=== PATIENT | male | born 1985 | race Caucasian/White ===

== ENCOUNTER 2019-03-22 16:25 | Emergency (ER) | payer SELFPAY ==
[2019-03-22] MEDS ORDERED: Sodium Chloride 0.9% 10 ML Syringe FLUSH PRN (16:29)
[2019-03-22] MEDS ORDERED: Sodium Chloride 0.9% 2.5 ML Syringe FLUSH PRN (16:29)
--- NOTE | 2019-03-22 16:34 | EDM.PDOC ---
ED HPI GENERAL MEDICAL PROBLEM - General Chief Complaint: Lower Extremity Injury/Pain Stated Complaint: BLOOD CLOT IN RT KNEE Time Seen by Provider: 03/22/19 16:32 Source of Information: Reports: Patient History Limitations: Reports: No Limitations - History of Present Illness INITIAL COMMENTS - FREE TEXT/NARRATIVE: HISTORY AND PHYSICAL: History of present illness: Patient is a 33-year-old male who presents to the emergency room today with complaints of pain to the right posterior thigh. 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 He states he is concerned he has a blood clot to the affected area. Symptoms started this morning and have progressively gotten worse. The area is warm to touch and tender with palpation. He denies any injury, trauma or falls. Denies any numbness or tingling of the affected extremity. Review of systems: As per history of present illness and below otherwise all systems reviewed and negative. Past medical history: As per history of present illness and as reviewed below otherwise noncontributory. Surgical history: As per history of present illness and as reviewed below otherwise noncontributory. Social history: See social history for further information Family history: As per history of present illness and as reviewed below otherwise noncontributory. Physical exam: General: Well-developed and well-nourished 33-year-old male. Alert and oriented. Nontoxic appearing and in no acute distress. HEENT: Atraumatic, normocephalic, pupils equal and reactive bilaterally, negative for conjunctival pallor or scleral icterus, mucous membranes moist, TMs normal bilaterally, throat clear, neck supple, nontender, trachea midline. No drooling or trismus noted. No meningeal signs. No hot potato voice noted. Lungs: Clear to auscultation, breath sounds equal bilaterally, chest nontender. Heart: S1S2, regular rate and rhythm without overt murmur Abdomen: Soft, nondistended, nontender. Negative for masses. Skin: Localized area of erythema and tenderness with palpation to the medial distal posterior thigh. Firm to touch without fluctuance. Does not appear cellulitic. Otherwise skin is intact, warm, dry. No lesions or rashes noted. Extremities: Atraumatic, moves all extremities per self without difficulty or deficits, negative for cords or calf pain. See SKIN for details. Strong pedal and pretibial pulses bilaterally. Neurovascular unremarkable. Neuro: Awake, alert, oriented. Cranial nerves II through XII unremarkable. Cerebellum unremarkable. Motor and sensory unremarkable throughout. Exam nonfocal. Notes: Ultrasound shows DVT in the right femoral and popliteal veins. Patient's PT/INR is subtherapeutic (0.92) for being on Coumadin therapy. Otherwise lab is unremarkable. Patient reports he has not had his PT/INR assessed or been seen by his PCP in over a year and a half. 1745: [place] hematology oncologist, Dr Gonzales, was consulted on this patient. She is aware of the patient history and presentation. She does state this patient is a candidate for taking Eliquis or Xarelto instead of the Coumadin, as patient is noncompliant. Discussed this with the patient medication options. He would like to start the Eliquis, we discussed stopping the Coumadin/warfarin. Signs and symptoms that would prompt him to return to the emergency room were reviewed and discussed. Supportive care measures were reviewed and discussed. Voices understanding and is agreeable to plan of care. Denies any further questions or concerns at this time. Diagnostics: CBC, CMP, PT/INR, lower extremity ultrasound Therapeutics: Saline lock Prescription: Eliquis Impression: Subtherapeutic anticoagulation therapy History of factor V Leiden DVT Plan: 1. Stop Warfarin medication today 2. Eliquis 10mg twice daily x 7 days, then 5mg twice daily (maintenance dose) 3. Follow-up with your primary care provider for re-evaluation and further management as we discussed. You'll need to have your primary care refill and further continue this medication that has been prescribed. 4. Return to the ED as needed and as discussed. Definitive disposition and diagnosis as appropriate pending reevaluation and review of above. right thigh Pain Score (Numeric/FACES): 7 - Related Data Allergies Allergy/AdvReac Type Severity Reaction Status Date / Time No Known Allergies Allergy Verified 03/22/19 16:31 Home Meds: Home Meds Warfarin [Coumadin] 5 mg PO DAILY 03/22/19 [History] Review of Systems - Review of Systems Review Of Systems: ROS reveals no pertinent complaints other than HPI. ED EXAM, GENERAL - Physical Exam Exam: See Below (See dictation) Course - Vital Signs Last Recorded V/S: Last Vital Signs Temp 96.9 F 03/22/19 16:32 Pulse 90 03/22/19 18:32 Resp 18 03/22/19 17:52 BP 147/78 H 03/22/19 18:32 Pulse Ox 98 03/22/19 18:32 - Orders/Labs/Meds Orders: Active Orders 24 hr Category Date Time Status Saline Lock Insert [OM.PC] Stat Oth 03/22/19 16:29 Ordered Labs: Laboratory Tests 03/22/19 03/22/19 03/22/19 Range/Units 16:40 16:40 16:40 WBC 9.25 (4.0-11.0) K/uL RBC 4.78 (4.50-5.90) M/uL Hgb 15.4 (13.0-17.0) g/dL Hct 43.3 (38.0-50.0) % MCV 90.6 (80.0-98.0) fL MCH 32.2 H (27.0-32.0) pg MCHC 35.6 (31.0-37.0) g/dL RDW Std Deviation 41.4 (28.0-62.0) fl RDW Coeff of Jason 13 (11.0-15.0) % Plt Count 307 (150-400) K/uL MPV 9.80 (7.40-12.00) fL Neut % (Auto) 61.8 (48.0-80.0) % Lymph % (Auto) 25.2 (16.0-40.0) % [place] % (Auto) 9.4 (0.0-15.0) % Eos % (Auto) 3.2 (0.0-7.0) % Baso % (Auto) 0.4 (0.0-1.5) % Neut # (Auto) 5.7 (1.4-5.7) K/uL Lymph # (Auto) 2.3 (0.6-2.4) K/uL [place] # (Auto) 0.9 H (0.0-0.8) K/uL Eos # (Auto) 0.3 (0.0-0.7) K/uL Baso # (Auto) 0.0 (0.0-0.1) K/uL Nucleated RBC % 0.0 /100WBC Nucleated RBCs # 0 K/uL INR 0.92 Sodium 140 (136-148) mmol/L Potassium 3.7 (3.5-5.1) mmol/L Chloride 104 (98-107) mmol/L Carbon Dioxide 23.6 (21.0-32.0) mmol/L BUN 17 (7.0-18.0) mg/dL Creatinine 1.1 (0.8-1.3) mg/dL Est Cr Clr Drug Dosing 112.03 mL/min Estimated GFR (MDRD) > 60.0 ml/min Glucose 154 H (74-106) mg/dL Calcium 8.7 (8.5-10.1) mg/dL Total Bilirubin 0.5 (0.2-1.0) mg/dL AST 26 (15-37) IU/L ALT 81 H (14-63) IU/L Alkaline Phosphatase 88 (46-116) U/L Total Protein 7.0 (6.4-8.2) g/dL Albumin 3.6 (3.4-5.0) g/dL Globulin 3.4 (2.6-4.0) g/dL Albumin/Globulin Ratio 1.1 (0.9-1.6) Meds: Medications Discontinued Medications Generic Name Dose Route Start Last Admin Trade Name Freq PRN Reason Stop Dose Admin Sodium Chloride 10 ml 03/22/19 16:29 03/22/19 17:48 Saline Flush FLUSH 10 ml ASDIRECTED PRN Administration Keep Vein Open Sodium Chloride 2.5 ml 03/22/19 16:29 03/22/19 17:48 Saline Flush FLUSH 2.5 ml ASDIRECTED PRN Administration Keep Vein Open Departure - Departure Time of Disposition: 18:05 Disposition: Home, Self-Care 01 Clinical Impression: History of factor V Leiden mutation, Subtherapeutic anticoagulation DVT (deep venous thrombosis) Qualifiers: DVT location: lower extremity Affected thrombotic vein of extremity: femoral Chronicity: acute Laterality: right Qualified Code(s): I82.411 - Acute embolism and thrombosis of right femoral vein - Discharge Information Instructions: Deep Vein Thrombosis Referrals: PCP,None [Primary Care Provider] - Forms: ED Department Discharge Additional Instructions: The following information is given to patients seen in the emergency department who are being discharged to home. This information is to outline your options for follow-up care. We provide all patients seen in our emergency department with a follow-up referral. The need for follow-up, as well as the timing and circumstances, are variable depending upon the specifics of your emergency department visit. If you don't have a primary care physician on staff, we will provide you with a referral. We always advise you to contact your personal physician following an emergency department visit to inform them of the circumstance of the visit and for follow-up with them and/or the need for any referrals to a consulting specialist. The emergency department will also refer you to a specialist when appropriate. This referral assures that you have the opportunity for follow-up care with a specialist. All of these measure are taken in an effort to provide you with optimal care, which includes your follow-up. Under all circumstances we always encourage you to contact your private physician who remains a resource for coordinating your care. When calling for follow-up care, please make the office aware that this follow-up is from your recent emergency room visit. If for any reason you are refused follow-up, please contact the [facility] Emergency Department at and asked to speak to the emergency department charge nurse. [facility] [address] [place] [id number] [place] [address] 1. Stop Warfarin medication today 2. Eliquis 10mg twice daily x 7 days, then 5mg twice daily (maintenance dose) 3. Follow-up with your primary care provider for re-evaluation and further management as we discussed. You'll need to have your primary care refill and further continue this medication that has been prescribed. 4. Return to the ED as needed and as discussed. - My Orders Last 24 Hours: My Active Orders 03/22/19 16:29 Saline Lock Insert [OM.PC] Stat - Assessment/Plan Last 24 Hours: My Active Orders 03/22/19 16:29 Saline Lock Insert [OM.PC] Stat
[2019-03-22 17:14] LABS: CHLORIDE,CL 104 mmol/L (98-107); SODIUM,NA 140 mmol/L (136-148)
--- NOTE | 2019-03-22 17:28 | US ---
HISTORY: Right leg redness and swelling. History of blood clots. Currently on anticoagulation. TECHNIQUE: Ultrasound of the right lower extremity deep veins using gregory-scale, color Doppler, and spectral Doppler. COMPARISON: None. FINDINGS: Right: Common femoral vein is patent and compressible. Deep femoral vein is patent and compressible. Hypoechoic thrombus in the mid and distal femoral vein and popliteal vein. Involved segments are noncompressible. Posterior tibial vein is patent and compressible. Greater saphenous vein is patent and compressible at the junction with the femoral vein. IMPRESSION: DVT in the right femoral and popliteal veins. --- Called to Yas Fountain NP on 03/22/19 at 1725 hours. Dictated by Boogie Murphy MD @ Mar 22 2019 5:21PM Signed by Dr. Boogie Murphy @ Mar 22 2019 5:26PM
== END 2019-03-22 18:33 | disposition home or self-care (01) ==
LOC: MW.ED 16:25
DX: I82.411 Acute embolism and thrombosis of right femoral vein (principal); I82.431 Acute embolism and thrombosis of right popliteal vein; R79.1 Abnormal coagulation profile
CPT/HCPCS: 80053; 85025; 85610; 93971-26-RT; 93971-RT; 99284-25

== ENCOUNTER 2020-05-05 13:21 | Emergency (ER) | payer SELFPAY ==
--- NOTE | 2020-05-05 13:40 | EDM.PDOC ---
ED HPI GENERAL MEDICAL PROBLEM - General Chief Complaint: Lower Extremity Injury/Pain Stated Complaint: SCAR OPENED UP ON RT ANKLE Time Seen by Provider: 05/05/20 13:22 Source of Information: Reports: Patient History Limitations: Reports: No Limitations - History of Present Illness INITIAL COMMENTS - FREE TEXT/NARRATIVE: HISTORY AND PHYSICAL: History of present illness: Patient is a 34-year-old male who presents to the emergency room with complaints of an open sore to the right medial ankle. He states several years ago he developed a laceration at the site which closed well on its own. Approximately a week ago he noticed a small open sore/abrasion which he believes is from his boots rubbing on his medial ankle. There is a quarter size area of open skin on the medial malleolus along with some diffuse erythema surrounding the site. He denies any injury, trauma or falls. Patient does have a history of factor V and does take Coumadin for this. He follows up in the clinic routinely to monitor his INRs. He denies any numbness, tingling, saddle paresthesia. He has been ambulating without any difficulty or deficits. Review of systems: As per history of present illness and below otherwise all systems reviewed and negative. Past medical history: As per history of present illness and as reviewed below otherwise noncontributory. Surgical history: As per history of present illness and as reviewed below otherwise noncontributory. Social history: See social history for further information Family history: As per history of present illness and as reviewed below otherwise noncontributory. Physical exam: General: Well-developed and well-nourished 34-year-old male. Alert and oriented. Nontoxic-appearing and in no acute distress. HEENT: Atraumatic, normocephalic, pupils equal and reactive bilaterally, negative for conjunctival pallor or scleral icterus, mucous membranes moist, TMs normal bilaterally, throat clear, neck supple, nontender, trachea midline. No drooling or trismus noted. No meningeal signs. No hot potato voice noted. Lungs: Clear to auscultation, breath sounds equal bilaterally, chest nontender. Heart: S1S2, regular rate and rhythm without overt murmur Abdomen: Soft, nondistended, nontender. Skin: Intact, warm, dry. No lesions or rashes noted. Extremities: Atraumatic, moves all extremities per self without difficulty or deficits, negative for cords or calf pain. Neurovascular unremarkable. Neuro: Awake, alert, oriented. Cranial nerves II through XII unremarkable. Cerebellum unremarkable. Motor and sensory unremarkable throughout. Exam nonfocal. Notes: Baseline lab work is unremarkable. X-ray shows a minimal spur at the attachment of the Achilles tendon, otherwise unremarkable. Will start on outpatient oral antibiotics and we discussed signs and symptoms that would prompt him to return to the emergency room. I did encourage him to follow-up with her primary care provider to have a close eye on the wound. Follow-up, medication and supportive care measures were reviewed and discussed. Voices understanding and is agreeable to plan of care. Denies any further questions or concerns at this time. Diagnostics: CBC, BMP, X-ray Therapeutics: None Prescription: Clindamycin Impression: Infected ankle abrasion with cellulitis Plan: 1. Keep the area clean and dry. Avoid any tight or constricting shoes/socks while its healing. Continue to monitor for signs of improvement. Take your antibiotic as prescribed. If you develop fever/chills, your redness increases, drainage worsens, any new or worsening symptoms return to the ED. 2. Tylenol and/or ibuprofen as needed for pain management. 3. Please follow-up with your primary care provider in the next 1-2 days. Return to the ED as needed and as discussed. Definitive disposition and diagnosis as appropriate pending reevaluation and review of above. Right Ankle Pain Score (Numeric/FACES): 5 - Related Data Allergies Allergy/AdvReac Type Severity Reaction Status Date / Time No Known Allergies Allergy Verified 05/05/20 13:39 Home Meds: Home Meds Warfarin [Coumadin] 7.5 mg PO DAILY 03/22/19 [History] Clindamycin HCl 450 mg PO TID 7 Days #21 capsule 05/05/20 [Rx] Past Medical History Cardiovascular History: Reports: Blood Clots/VTE/DVT Hematologic History: Reports: Bleeding Disorder, Other (See Below) Other Hematologic History: Factor Five Liden - Infectious Disease History Infectious Disease History: Reports: Chicken Pox Social & Family History - Family History Family Medical History: Noncontributory Review of Systems - Review of Systems Review Of Systems: Comprehensive ROS is negative, except as noted in HPI. ED EXAM, GENERAL - Physical Exam Exam: See Below (See dictation) Course - Vital Signs Last Recorded V/S: Last Vital Signs Temp 96.5 F L 05/05/20 13:36 Pulse 81 05/05/20 13:36 Resp 16 05/05/20 13:36 BP 130/78 05/05/20 13:36 Pulse Ox 98 05/05/20 13:36 - Orders/Labs/Meds Orders: Active Orders 24 hr Category Date Time Status CULTURE WOUND [RM] Stat Lab 05/05/20 11:35 Received Labs: Laboratory Tests 05/05/20 05/05/20 Range/Units 13:44 13:44 WBC 8.37 (4.0-11.0) K/uL RBC 4.99 (4.50-5.90) M/uL Hgb 15.6 (13.0-17.0) g/dL Hct 45.3 (38.0-50.0) % MCV 90.8 (80.0-98.0) fL MCH 31.3 (27.0-32.0) pg MCHC 34.4 (31.0-37.0) g/dL RDW Std Deviation 42.5 (28.0-62.0) fl RDW Coeff of Jason 13 (11.0-15.0) % Plt Count 410 H (150-400) K/uL MPV 9.20 (7.40-12.00) fL Neut % (Auto) 56.0 (48.0-80.0) % Lymph % (Auto) 33.3 (16.0-40.0) % [place] % (Auto) 6.5 (0.0-15.0) % Eos % (Auto) 3.6 (0.0-7.0) % Baso % (Auto) 0.6 (0.0-1.5) % Neut # (Auto) 4.7 (1.4-5.7) K/uL Lymph # (Auto) 2.8 H (0.6-2.4) K/uL [place] # (Auto) 0.5 (0.0-0.8) K/uL Eos # (Auto) 0.3 (0.0-0.7) K/uL Baso # (Auto) 0.1 (0.0-0.1) K/uL Nucleated RBC % 0.0 /100WBC Nucleated RBCs # 0 K/uL Sodium 140 (136-148) mmol/L Potassium 3.7 (3.5-5.1) mmol/L Chloride 102 (98-107) mmol/L Carbon Dioxide 28.4 (21.0-32.0) mmol/L BUN 16 (7.0-18.0) mg/dL Creatinine 1.2 (0.8-1.3) mg/dL Est Cr Clr Drug Dosing 101.71 mL/min Estimated GFR (MDRD) > 60.0 ml/min Glucose 167 H (74-106) mg/dL Calcium 9.6 (8.5-10.1) mg/dL Departure - Departure Time of Disposition: 14:33 Disposition: Home, Self-Care 01 Clinical Impression: Cellulitis Qualifiers: Site of cellulitis: extremity Site of cellulitis of extremity: lower extremity Laterality: right Qualified Code(s): L03.115 - Cellulitis of right lower limb Infected abrasion of ankle Qualifiers: Encounter type: initial encounter Laterality: right Qualified Code(s): S90.511A - Abrasion, right ankle, initial encounter - Discharge Information Prescriptions: Clindamycin HCl 450 mg PO TID 7 Days #21 capsule Instructions: Cellulitis, Adult, [id number] Referrals: PCP,None [Primary Care Provider] - Forms: ED Department Discharge Additional Instructions: The following information is given to patients seen in the emergency department who are being discharged to home. This information is to outline your options for follow-up care. We provide all patients seen in our emergency department with a follow-up referral. The need for follow-up, as well as the timing and circumstances, are variable depending upon the specifics of your emergency department visit. If you don't have a primary care physician on staff, we will provide you with a referral. We always advise you to contact your personal physician following an emergency department visit to inform them of the circumstance of the visit and for follow-up with them and/or the need for any referrals to a consulting specialist. The emergency department will also refer you to a specialist when appropriate. This referral assures that you have the opportunity for follow-up care with a specialist. All of these measure are taken in an effort to provide you with optimal care, which includes your follow-up. Under all circumstances we always encourage you to contact your private physician who remains a resource for coordinating your care. When calling for follow-up care, please make the office aware that this follow-up is from your recent emergency room visit. If for any reason you are refused follow-up, please contact the [facility] Emergency Department at and asked to speak to the emergency department charge nurse. [facility] [address] [place] [address] [facility] [address] [place] [address] Thank you for choosing the [facility] emergency department in [place] for your medical needs today. It was a pleasure caring for you. You were seen in the emergency department for an open sore with cellulitis. 1. Keep the area clean and dry. Avoid any tight or constricting shoes/socks while its healing. Continue to monitor for signs of improvement. Take your antibiotic as prescribed. If you develop fever/chills, your redness increases, drainage worsens, any new or worsening symptoms return to the ED. 2. Tylenol and/or ibuprofen as needed for pain management. 3. Please follow-up with your primary care provider in the next 1-2 days. Return to the ED as needed and as discussed. Sepsis Event Note (ED) - Evaluation Sepsis Screening Result: No Definite Risk - Focused Exam Vital Signs: Vital Signs Temp Pulse Resp BP Pulse Ox 05/05/20 13:36 96.5 F L 81 16 130/78 98 - My Orders Last 24 Hours: My Active Orders 05/05/20 11:35 CULTURE WOUND [RM] Stat - Assessment/Plan Last 24 Hours: My Active Orders 05/05/20 11:35 CULTURE WOUND [RM] Stat
[2020-05-05 14:05] LABS: CARBON DIOXIDE,CO2 28.4 mmol/L (21.0-32.0); CHLORIDE,CL 102 mmol/L (98-107); GLUCOSE RANDOM 167 mg/dL (74-106); POTASSIUM,K 3.7 mmol/L (3.5-5.1); SODIUM,NA 140 mmol/L (136-148)
[2020-05-05 14:12] LABS: BLOOD UREA NITROGEN,BUN 16 mg/dL (7.0-18.0)
--- NOTE | 2020-05-05 14:29 | CR ---
Right ankle: 3 views of the right ankle were obtained. Comparison: No prior right ankle study. Minimal spur is noted at the attachment of the Achilles tendon the calcaneus. Ankle mortise is symmetric. No acute fracture, dislocation or other bony abnormality is identified. Impression: 1. Minimal spur at the attachment of the Achilles tendon the calcaneus. 2. Right ankle study is otherwise unremarkable. Diagnostic code #2 This report was dictated in MDT
== END 2020-05-05 14:45 | disposition home or self-care (01) ==
LOC: MW.ED 13:21
DX: S90.511A Abrasion, right ankle, initial encounter (principal); L08.9 Local infection of the skin and subcutaneous tissue, unspecified; L03.115 Cellulitis of right lower limb; Z86.718 Personal history of other venous thrombosis and embolism; Z79.01 Long term (current) use of anticoagulants; X58.XXXA Exposure to other specified factors, initial encounter
CPT/HCPCS: 36415; 73610-26-RT; 73610-RT; 80048; 85025; 87070; 87077; 87186; 99282; 99283-25

== ENCOUNTER 2020-11-28 16:54 | Emergency (ER) | payer MEDICAID, OTHER ==
[2020-11-28] MEDS ORDERED: Clindamycin Phosphate 900 MG/6 ML SDV IM ONE (17:12)
[2020-11-28] MEDS ORDERED: Clindamycin HCl 150 MG Cap ONE (17:18)
--- NOTE | 2020-11-28 17:18 | EDM.PDOC ---
ED HPI GENERAL MEDICAL PROBLEM - General Chief Complaint: Skin Complaint Stated Complaint: RIGHT FEET TOE INFECTION Time Seen by Provider: 11/28/20 16:55 Source of Information: Reports: Patient History Limitations: Reports: No Limitations Right Ankle Pain Score (Numeric/FACES): 8 - Related Data Allergies Allergy/AdvReac Type Severity Reaction Status Date / Time No Known Allergies Allergy Verified 11/28/20 17:01 Home Meds: Home Meds Clindamycin HCl 150 mg PO Q8H 10 Days #90 capsule 11/28/20 [Rx] Past Medical History HEENT History: Reports: None Cardiovascular History: Reports: Blood Clots/VTE/DVT Respiratory History: Reports: None Gastrointestinal History: Reports: None Genitourinary History: Reports: None Musculoskeletal History: Reports: None Neurological History: Reports: None Psychiatric History: Reports: None Endocrine/Metabolic History: Reports: None Hematologic History: Reports: Bleeding Disorder, Other (See Below) Other Hematologic History: Factor Five Liden Oncologic (Cancer) History: Reports: None Dermatologic History: Reports: None - Infectious Disease History Infectious Disease History: Reports: Chicken Pox - Past Surgical History Other HEENT Surgeries/Procedures: Jaw Wired shut, previously. Social & Family History - Family History Family Medical History: No Pertinent Family History - Tobacco Use Tobacco Use Status *Q: Current Every Day Tobacco User Years of Tobacco use: 20 Packs/Tins Daily: 1 - Caffeine Use Caffeine Use: Reports: Coffee - Recreational Drug Use Recreational Drug Use: Yes Recreational Drug Type: Reports: Marijuana/Hashish Recreational Drug Use Frequency: Daily ED ROS GENERAL - Review of Systems Review Of Systems: Comprehensive ROS is negative, except as noted in HPI. ED EXAM, GENERAL - Physical Exam Exam: See Below Exam Limited By: No Limitations General Appearance: Alert, WD/WN, No Apparent Distress Throat/Mouth: Normal Voice, No Airway Compromise Head: Atraumatic, Normocephalic Neck: Normal Inspection Respiratory/Chest: No Respiratory Distress, No Accessory Muscle Use Cardiovascular: Normal Peripheral Pulses, Regular Rate, Rhythm Extremities: Other (large ulcerated wound w/ TTP and draining yellow-white fluid, chronic in appearance, surrounding erythema) Neurological: Alert Psychiatric: Normal Affect, Normal Mood Skin Exam: Warm, Dry, Intact, Normal Color Course - Vital Signs Last Recorded V/S: Last Vital Signs Temp 96.5 F L 11/28/20 17:02 Pulse 87 11/28/20 17:02 Resp 18 11/28/20 17:02 BP 142/85 H 11/28/20 17:02 Pulse Ox 100 11/28/20 17:02 - Orders/Labs/Meds Orders: Active Orders 24 hr Category Date Time Status CULTURE WOUND [RM] Stat Lab 11/28/20 17:11 Ordered Clindamycin Phosphate [Cleocin] Med 11/28/20 17:12 Once 600 mg IM ONETIME ONE - Re-Assessments/Exams Free Text/Narrative Re-Assessment/Exam: 11/28/20 17:15 Will give clindamycin IM x1 dose. Will d/c with clindamycin PO rx. 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 Will send wound culture to ensure infection is sensitive to clindamycin. Departure - Departure Time of Disposition: 17:16 Disposition: Home, Self-Care 01 Condition: Good Clinical Impression: Wound cellulitis - Discharge Information Prescriptions: Clindamycin HCl 150 mg PO Q8H 10 Days #90 capsule Instructions: Cellulitis, Adult Referrals: Nalini Garner DO [Primary Care Provider] - Forms: ED Department Discharge Additional Instructions: Your chronic wound definitely appears infected. You were given 1 times dose of intramuscular antibiotic called clindamycin. I have sent a 10-day prescription to your pharmacy. This will likely help with the acute infection, but you definitely need to follow-up with podiatry for chronic wound care as this large wound will likely not heal without extensive wound care. I provided information for a local brass instrument repair technician below. If you develop fever or any other symptoms that are concerning to you you should come back to the emergency department for reassessment. You need to establish care with a primary care physician if you want to restart your Coumadin as this is not a medication that is safe to prescribe from the emergency department since it requires routine lab monitoring which we cannot provide. [facility] Dr. Dalton Ruano, DPM [phone] [facility], next to [facility], at [address] [facility], [place], [place] Dr. Ruano does accept Medicaid [place] insurance. The following information is given to patients seen in the emergency department who are being discharged to home. This information is to outline your options for follow-up care. We provide all patients seen in our emergency department with a follow-up referral. The need for follow-up, as well as the timing and circumstances, are variable depending upon the specifics of your emergency department visit. If you don't have a primary care physician on staff, we will provide you with a referral. We always advise you to contact your personal physician following an emergency department visit to inform them of the circumstance of the visit and for follow-up with them and/or the need for any referrals to a consulting specialist. The emergency department will also refer you to a specialist when appropriate. This referral assures that you have the opportunity for follow-up care with a specialist. All of these measure are taken in an effort to provide you with optimal care, which includes your follow-up. Under all circumstances we always encourage you to contact your private physician who remains a resource for coordinating your care. When calling for follow-up care, please make the office aware that this follow-up is from your recent emergency room visit. If for any reason you are refused follow-up, please contact the [facility] Emergency Department at and asked to speak to the emergency department charge nurse. Please follow up with your primary care physician. If you do not have a primary care physician, see below: [facility] [address] [place] [id number] [place] [facility] [address] [place] [id number] [facility] [address] [place] [id number] Sepsis Event Note (ED) - Evaluation Sepsis Screening Result: No Definite Risk - Focused Exam Vital Signs: Vital Signs Temp Pulse Resp BP Pulse Ox 11/28/20 17:02 96.5 F L 87 18 142/85 H 100 - My Orders Last 24 Hours: My Active Orders 11/28/20 17:11 CULTURE WOUND [RM] Stat 11/28/20 17:12 Clindamycin Phosphate [Cleocin] 600 mg IM ONETIME ONE - Assessment/Plan Last 24 Hours: My Active Orders 11/28/20 17:11 CULTURE WOUND [RM] Stat 11/28/20 17:12 Clindamycin Phosphate [Cleocin] 600 mg IM ONETIME ONE
== END 2020-11-28 17:58 | disposition home or self-care (01) ==
LOC: MW.ED 16:54
DX: L03.115 Cellulitis of right lower limb (principal); L97.319 Non-pressure chronic ulcer of right ankle with unspecified severity; Z72.0 Tobacco use
CPT/HCPCS: 87070; 87077; 87186; 96372; 99283; J3490